=== PATIENT | female | born 1940 | race Caucasian/White ===

== ENCOUNTER 2016-08-13 08:25 | Day surgery (SDC) | payer BC ==
[2016-08-12 13:33] VITALS: BMI 39.5
[2016-08-13] MEDS ORDERED: GENTAMICIN SO4 80 MG/2 ML VIAL ONE (10:38)
[2016-08-13] MEDS ORDERED: MIDAZOLAM HCL 2 MG/2 ML SINGLE DOSE VIAL ONE (10:46)
[2016-08-13] MEDS ORDERED: ROCURONIUM BROMIDE 50 MG/5 ML VIAL ONE (10:49)
[2016-08-13] MEDS ORDERED: ceFAZolin SODIUM 1 GM VIAL IVPB ONE (10:54)
[2016-08-13] MEDS ORDERED: GENTAMICIN SO4 80 MG/2 ML VIAL IVPB ONE (11:00)
[2016-08-13] MEDS ORDERED: DEXAMETHASONE SOD PHOSPHATE 4 MG/1 ML VIAL ONE (11:19)
[2016-08-13] MEDS ORDERED: DEXTROSE 5%-0.45% SALINE 1,000 ML IV SCH (11:30)
[2016-08-13] MEDS ORDERED: oxyCODONE HCL 5 MG TABLET PO PRN (11:30)
[2016-08-13] MEDS ORDERED: ACETAMINOPHEN INJECTION 100 ML IVPB ONE (12:13)
[2016-08-13] MEDS ORDERED: ACETAMINOPHEN 1000 MG/100 ML VIAL (NON FORMULARY) IVPB ONE ×2 (12:15→13:17)
--- NOTE | 2016-08-13 12:25 | OP ---
DATE OF OPERATION: 08/13/2016 PREOPERATIVE DIAGNOSIS: Large right kidney stone. POSTOPERATIVE DIAGNOSIS: Large right kidney stone, plus right ureteral stricture. PROCEDURE PERFORMED: Cystoscopy, retrograde pyelogram, and stent placement. SURGEON: Fabi Lau MD INDICATIONS: The patient is a 76-year-old female with chronic UTIs. She was noted to have a large 1.6-cm right kidney stone. She was taken to the OR for planned ureteroscopy and laser lithotripsy. PROCEDURE IN DETAIL: The patient was taken to the OR and placed supine on the table. child monitor administered and general anesthesia was established. She was prepped and draped in the dorsal lithotomy position. She was given 2 g of Ancef and 1 g of gentamicin. The scope was inserted into the urethra and then into the bladder without difficulty. The bladder was normal. Attention was turned to the ureteral orifice and inserted the ureteral catheter and contrast was injected. There was mild fullness of the collecting system with a large stone at the UPJ. A guidewire was advanced into the ureter beyond the stone. A 2nd guidewire was advanced. Over the 2nd wire a flexible ureteroscope was attempted to be advanced but would not go through because of the tight narrowing at the UPJ. So, at this point the ureteroscope was not bothered to try to be advanced since it would not go up easily and so attention was turned to just placing a stent and then to come back later at a different date for ureteroscopy and laser lithotripsy. So, at this point the over the remaining guidewire a 7-Persian 24-cm double pigtail stent was then advanced in a monorail fashion. Fluoroscopy confirmed good position. The patient was then woken from anesthesia and transferred to the recovery in stable condition. There were no complications. ESTIMATED BLOOD LOSS: minimal. FABI LAU M.D. [id number]
[2016-08-13] MEDS ORDERED: ONDANSETRON 4 MG/2 ML VIAL IVPUSH PRN (13:16)
[2016-08-13] MEDS ORDERED: LACTATED RINGERS SOLUTION 1,000 ML IV SCH (13:30)
[2016-08-13 14:08] VITALS: BP 157/87; PULSE 52; TEMP 97.4
== END 2016-08-13 14:37 | disposition home or self-care (01) ==
LOC: JASU-SURG 08:25
PROVIDERS: ATTEND Urology
PROC: 0T768DZ Dilation of Right Ureter with Intraluminal Device, Via Natural or Artificial Opening Endoscopic (ICD-10-PCS; principal; 2016-08-13 10:00)
PROC: BT1DYZZ Fluoroscopy of Right Kidney, Ureter and Bladder using Other Contrast (ICD-10-PCS; 2016-08-13 10:00)
DX: N20.0 Calculus of kidney (principal); N13.5 Crossing vessel and stricture of ureter without hydronephrosis
CPT/HCPCS: 76000-TC; 94760

== ENCOUNTER 2016-08-28 08:50 | Inpatient (IN) | payer BC ==
[2016-08-28 08:59] VITALS: BMI 39.6
--- NOTE | 2016-08-28 10:18 | PDOC ---
History of Present Illness - General History Source: Patient Exam Limitations: No Limitations - History of Present Illness Initial Comments: 08/28/16 12:35 Patient is a 76 year old female with a significant past medical history of hypertension and recurrent UTIs who presents to the ED with fever. Patient reports a fever of 103.5 and chills. She also reports yellow vomiting. Patient reports r flank pain that radites to her R groin/vagina. Patient had hx of chronic utis and was recently placed on abx for 7 days and dx with kidney stone. Patient had a urethral stent put in as outpatient by Dr. Whitaker. Patient did not the stone removed yet and is scheduled on 09/04. Patient had a UA by Dr. Whitaker for UTI 08/26 and is still waiting on results. PMD: Hardeep <Kandi Sánchez - Last Filed: 08/28/16 13:23> <Andrea Campbell - Last Filed: 08/28/16 14:00> - General Chief Complaint: SIRS, Suspected/Possible Stated Complaint: FEVER, TREMORS (URETERIC STENT) Time Seen by Provider: 08/28/16 09:50 Past History <Kandi Sánchez - Last Filed: 08/28/16 13:23> - Past Medical History HTN: Yes Kidney Stones: Yes - Surgical History Appendectomy: Yes Orthopedic Surgery: Yes (KNEE SURGERY-ARTHROSCOPY) - Psycho/Social/Smoking Cessation Hx Anxiety: No Suicidal Ideation: No Smoking History: Never smoked Hx Alcohol Use: No Drug/Substance Use Hx: No Substance Use Type: None Hx Substance Use Treatment: No <Andrea Campbell - Last Filed: 08/28/16 14:00> - Past Medical History Allergies/Adverse Reactions: Allergies Allergy/AdvReac Type Severity Reaction Status Date / Time No Known Drug Allergies Allergy Verified 08/28/16 08:55 Home Medications: Ambulatory Orders Enalapril/Hydrochlorothiazide [Vaseretic 10-25 mg Tablet] 1 each PO DAILY Review of Systems - Review of Systems Able to Perform ROS?: Yes Comments:: 08/28/16 12:35 CONSTITUTIONAL: Reported: fever, chills No reported: Diaphoresis, Generalized Weakness, Malaise, Loss of Appetite HEENT: No reported: Rhinorrhea, Nasal Congestion, Throat Pain, Throat Swelling, Difficulty Swallowing, Mouth Swelling, Ear Pain, Eye Pain, Visual Changes CARDIOVASCULAR: No reported: Chest Pain, Syncope, Palpitations, Irregular Heart Rate, Lightheadedness, Peripheral Edema RESPIRATORY: No reported: Cough, Shortness of Breath, SOB with Exertion, Orthopnea, Wheezing , Stridor, Hemoptysis GASTROINTESTINAL: Reported: abdominal pain, nausea, vomiting No reported: Abdominal Distension, Diarrhea, Constipation, Melena, Hematochezia GENITOURINARY: Reported: genital pain, flank pain No reported: Dysuria, Frequency, Urgency, Hesitancy MUSCULOSKELETAL: No reported: Myalgia, Arthralgia, Joint Swelling, Back pain, Neck Pain SKIN: No reported: Rash, Itching, Pallor HEMEATOLOGIC/IMMUNOLOGIC: No reported: Easy Bleeding, Easy Bruising, Lymphadenopathy, Frequent infections ENDOCRINE: No reported: Unexplained Weight Gain, Unexplained Weight Loss, Heat Intolerance , Cold Intolerance NEUROLOGIC: No reported: Headache, Focal Weakness, Paresthesias, Vertigo, Lightheadedness, Unsteady Gait, Seizure, Mental Status Changes, Incontinence PSYCHIATRIC: No reported: Anxiety, Depression <Kandi Sánchez - Last Filed: 08/28/16 13:23> *Physical Exam - Vital Signs Last Vital Signs Temp Pulse Resp BP Pulse Ox 101.2 F H 88 16 132/72 98 08/28/16 10:50 08/28/16 10:02 08/28/16 10:50 08/28/16 10:02 08/28/16 10:50 - Physical Exam Comments: 08/28/16 12:36 GENERAL: The patient is awake, alert, and fully oriented, Nontoxic - in no acute distress. HEAD: Normocephalic, atraumatic. EYES: extraocular movements intact, sclera anicteric, conjunctiva clear. ENT: Normal voice, Moist mucous membranes. NECK: Normal range of motion, supple LUNGS: Breath sounds equal, clear to auscultation bilaterally. No wheezes, no rhonchi, no rales. HEART: Regular rate and rhythm, without murmur, rub or gallop. ABDOMEN: Soft, nontender, normoactive bowel sounds. No guarding, no rebound. (+) Mild R CVA tenderness EXTREMITIES: Normal range of motion, no edema. No clubbing or cyanosis. No cords , erythema, or tenderness. NEUROLOGICAL: No facial asymmetry, Normal speech, PSYCH: Normal mood, normal affect. SKIN: hot to touch, Dry, normal turgor, <PrincessKandi - Last Filed: 08/28/16 13:23> - Vital Signs Last Vital Signs Temp Pulse Resp BP Pulse Ox 100.1 F H 91 H 18 131/69 95 08/28/16 08:56 08/28/16 08:56 08/28/16 08:56 08/28/16 08:56 08/28/16 08:56 <Andrea Campbell - Last Filed: 08/28/16 14:00> Heart Score/ECG Review - ECG Impressions Comment:: 08/28/16 11:52 Twelve-lead EKG was performed and reviewed by me. There is normal sinus rhythm with a rate of 55 The axis is normal. The intervals are normal. Nonspecific ST wave changes <Andrea Campbell - Last Filed: 08/28/16 14:00> ED Treatment Course - LABORATORY CBC & Chemistry Diagram: 08/28/16 10:20 08/28/16 10:20 - ADDITIONAL ORDERS Additional order review: Laboratory Results 08/28/16 08/28/16 08/28/16 10:25 10:20 10:20 INR 1.28 H PTT (Actin FS) 27.6 VBG pH 7.45 H POC VBG pCO2 34.9 L POC VBG pO2 38.9 Mixed VBG HCO3 23.8 Sodium 136 Potassium 3.4 L Chloride 102 Carbon Dioxide 24 Anion Gap 10 BUN 18 Creatinine 0.9 Creat Clearance w eGFR > 60 Random Glucose 142 H Lactic Acid Calcium 8.2 L Total Bilirubin 0.9 AST 16 ALT 15 Alkaline Phosphatase 54 Creatine Kinase 68 Troponin I < 0.02 Total Protein 6.7 Albumin 3.4 Urine Color Urine Appearance Urine pH Urine Protein Urine Glucose (UA) Urine Ketones Urine Blood Urine Nitrite Urine Bilirubin Urine Urobilinogen Ur Leukocyte Esterase Urine RBC Urine WBC Ur Epithelial Cells Urine Bacteria Urine Mucus Blood Type Antibody Screen 08/28/16 08/28/16 08/28/16 10:02 10:02 10:02 INR PTT (Actin FS) VBG pH POC VBG pCO2 POC VBG pO2 Mixed VBG HCO3 Sodium Potassium Chloride Carbon Dioxide Anion Gap BUN Creatinine Creat Clearance w eGFR Random Glucose Lactic Acid 1.1 Calcium Total Bilirubin AST ALT Alkaline Phosphatase Creatine Kinase Troponin I Total Protein Albumin Urine Color Yellow Urine Appearance Slcloudy Urine pH 5.0 Urine Protein 1+ H Urine Glucose (UA) Negative Urine Ketones Trace H Urine Blood 3+ H Urine Nitrite Positive Urine Bilirubin Negative Urine Urobilinogen Negative Ur Leukocyte Esterase 3+ H Urine RBC 90 Urine WBC 441 Ur Epithelial Cells Rare Urine Bacteria Few Urine Mucus Rare Blood Type A POSITIVE Antibody Screen Negative 08/28/16 10:20 RBC 4.31 MCV 93.8 MCHC 34.3 RDW 12.8 MPV 8.9 Neutrophils % 81.4 Lymphocytes % 7.7 L Monocytes % 10.3 H Eosinophils % 0.1 Basophils % 0.5 - Medications Given in the ED: ED Medications Discontinued Medications Generic Name Dose Route Start Last Admin Trade Name Donovan PRN Reason Stop Dose Admin Acetaminophen 650 mg 08/28/16 11:35 08/28/16 11:36 Tylenol - PO 08/28/16 11:36 650 mg ONCE ONE Administration Ceftriaxone Sodium 1 gm/ 50 mls @ 100 mls/hr 08/28/16 11:27 08/28/16 11:34 Dextrose IVPB 08/28/16 11:56 100 mls/hr ONCE ONE Administration <Kandi Sánchez - Last Filed: 08/28/16 13:23> - LABORATORY CBC & Chemistry Diagram: 08/28/16 10:20 08/28/16 10:20 - RADIOLOGY Radiology Studies Ordered: Category Date Time Status CHEST X-RAY PORTABLE* [RAD] Stat Radiology 08/28/16 10:02 Ordered <Andrea Campbell - Last Filed: 08/28/16 14:00> Medical Decision Making - Medical Decision Making 08/28/16 13:23 A call was placed to Dr. Abdi at his service. Awaiting a call back. <Kandi Sánchez - Last Filed: 08/28/16 13:23> - Medical Decision Making 08/28/16 10:14 76y F hx of htn, kidney stones recent ureteral stent presents with compalint of fever since her stent and chills since wednesday, pt saw dr. ragsdale on wednesday and had a UA and per family, they were waiting for culture results. pt endorses intermittent R flank pain radiating down to her vagina. 08/28/16 11:33 pts labs reviewed noted for mild leukocytosis ua +uti case dw. dr. ragsdale, agree with management will give ctx and would recommend CT with IV contrast to r/o renal abscess pt will lkely need admission for management of complicated UTI & w kidney stone 08/28/16 13:19 ct notable for cystitsi, no signs of renal abscess will admit for further management will call dr. Meier 08/28/16 13:58 case dw jose carlson will admit to med surg under dr. hutchison service as pt has already failed outpatient abx therepy Case discussed in detail with admitting physician including history, physical exam and ancillary studies. Admitting physician has assumed care for the patient, will follow all pending diagnostics and will complete the evaluation and treatment. <Andrea Campbell - Last Filed: 08/28/16 14:00> *DC/Admit/Observation/Transfer - Attestations Scribe Attestion: 08/28/16 12:36 Documentation prepared by SHARON Muniz, acting as medical surgical tech for Andrea Campbell MD. <Kandi Sánchez - Last Filed: 08/28/16 13:23> - Discharge Dispostion Admit: Yes <Andrea Campbell - Last Filed: 08/28/16 14:00> Diagnosis at time of Disposition: Kidney stone on right side, Systemic inflammatory response syndrome (SIRS) Urinary tract infection Qualifiers: Urinary tract infection type: acute cystitis Hematuria presence: with hematuria Qualified Code(s): N30.01 - Acute cystitis with hematuria - Discharge Dispostion Condition at time of disposition: Guarded - Referrals Referrals: Seth Mullen [Primary Care Provider] -
[2016-08-28 10:36] LABS: BASOPHIL 0.5 % (0-2.0); EOSINOPHIL 0.1 % (0-4.5); MCH 32.2 pg (25.7-33.7); MCHC 34.3 g/dl (32.0-36.0); MEAN CELL VOLUME 93.8 fl (80-96); MEAN PLT VOLUME 8.9 fl (7.5-11.1); NEUTROPHILS 81.4 % (42.8-82.8); PLATELET COUNT 144 K/MM3 (134-434); RDW 12.8 % (11.6-15.6); WHITE BLOOD COUNT 10.4 K/mm3 (4.0-10.0)
[2016-08-28 10:40] LABS: VENOUS BLOOD GAS HCO3 23.8 meq/L (19-25); VENOUS PH 7.45 (7.32-7.42)
[2016-08-28 10:52] LABS: INR 1.28 (0.82-1.09); PROTHROMBIN TIME (PATIENT) 14.2 SEC (9.98-11.88)
[2016-08-28 10:55] LABS: ACTIVATED PTT 27.6 SECONDS (26.9-34.4)
[2016-08-28 11:02] LABS: ALBUMIN 3.4 g/dl (3.4-5.0); ANION GAP 10 (8-16); BILIRUBIN,TOTAL 0.9 mg/dL (0.2-1.0); CALCIUM 8.2 mg/dL (8.5-10.1); CO2 24 mmol/L (21-32); CREATININE 0.9 mg/dL (0.55-1.02); GLUCOSE,RANDOM 142 mg/dL (74-106); SGOT/AST 16 U/L (15-37); SGPT/ALT 15 U/L (12-78); TOT PROT 6.7 g/dl (6.4-8.2)
[2016-08-28 11:04] LABS: ALK PHOS 54 U/L (45-117); TROPONIN I < 0.02 ng/ml (0.00-0.05)
[2016-08-28 11:07] LABS: URINE APPEARANCE SLCLOUDY; URINE BILIRUBIN NEGATIVE (NEGATIVE); URINE COLOR YELLOW; URINE GLUCOSE (UA) NEGATIVE (NEGATIVE); URINE KETONE TRACE (NEGATIVE); URINE NITRITE POSITIVE (NEGATIVE); URINE UROBILINOGEN NEGATIVE mg/dL (0.2-1.0)
[2016-08-28 11:21] LABS: URINE BLOOD 3+ (NEGATIVE); URINE LEUK ESTERASE 3+ (NEGATIVE); URINE PROTEIN 1+ (NEGATIVE)
[2016-08-28 11:23] LABS: URINE BACTERIA FEW /hpf (NONE SEEN); URINE MUCUS RARE; URINE RBC 90 /hpf (0-3); URINE WBC 441 /hpf (3-5)
[2016-08-28] MEDS ORDERED: CEFTRIAXONE 1 GM in DEXTROSE 5%-WATER - 50 ML IVPB ONE (11:27)
[2016-08-28] MEDS ORDERED: CEFTRIAXONE 50 ML ONE (11:35)
[2016-08-28] MEDS ORDERED: ACETAMINOPHEN 325 MG TABLET (FP) PO ONE (11:35)
[2016-08-28] MEDS ORDERED: ACETAMINOPHEN 325 MG TABLET (FP) ONE (11:40)
[2016-08-28] MEDS ORDERED: POTASSIUM CHLORIDE TABS 20 MEQ TABLET.ER (FP) PO ONE (19:41)
[2016-08-28] MEDS ORDERED: ACETAMINOPHEN 325 MG TABLET (FP) PO PRN (21:01)
[2016-08-28] MEDS ORDERED: LEVOFLOXACIN 500 MG IVPB 100 ML IVPB ONE (21:02)
[2016-08-29 07:31] LABS: MCH 32.9 pg (25.7-33.7); MCHC 35.3 g/dl (32.0-36.0); MEAN CELL VOLUME 93.3 fl (80-96); MEAN PLT VOLUME 9.6 fl (7.5-11.1); PLATELET COUNT 143 K/MM3 (134-434); RDW 12.9 % (11.6-15.6); WHITE BLOOD COUNT 7.6 K/mm3 (4.0-10.0)
[2016-08-29 07:51] LABS: ANION GAP 8 (8-16); CALCIUM 8.3 mg/dL (8.5-10.1); CO2 27 mmol/L (21-32); CREATININE 0.8 mg/dL (0.55-1.02); GLUCOSE,RANDOM 106 mg/dL (74-106)
--- NOTE | 2016-08-29 08:33 | EKG ---
Test Reason : Blood Pressure : / mmHG Vent. Rate : 081 BPM Atrial Rate : 081 BPM P-R Int : 124 ms QRS Dur : 102 ms QT Int : 376 ms P-R-T Axes : 057 079 053 degrees QTc Int : 436 ms NORMAL SINUS RHYTHM NONSPECIFIC ST ABNORMALITY ABNORMAL ECG NO PREVIOUS ECGS AVAILABLE Confirmed by TEOFILO DUDLEY, MARVIN ([id number]) on 08/29/2016 8:32:52 AM Referred By: Confirmed By:MARVIN RED MD
[2016-08-29 09:32] LABS: PLATELET ESTIMATE ADEQUATE (NORMAL)
--- NOTE | 2016-08-29 09:37 | PN ---
Progress Note (short form) - Note Progress Note: ID consult dictated imp/reccd fevers/chill secondary to UTI nephrolithiasis with stent- stone has not been removed yet no obstruction on CT scan urology evaluation continue ceftriaxone-afebrile this am f/u cultures
[2016-08-29] MEDS ORDERED: cefTRIAXone 1 GM/50 ML BAG (PRE-DOCKED) IVPB SCH (10:00)
[2016-08-29] MEDS ORDERED: CEFTRIAXONE 1 GM in DEXTROSE 5%-WATER - 50 ML IVPB SCH (10:00)
[2016-08-29] MEDS ORDERED: cefTRIAXone 2 GM/100 ML BAG (PRE-DOCKED) IVPB SCH (10:00)
[2016-08-29] MEDS ORDERED: DEXTROSE 5%-WATER 100 ML IVPB ONE (10:06)
[2016-08-29] MEDS: CEFTRIAXONE 2 GM in DEXTROSE 5%-WATER 100 ML IVPB SCH (10:07)
--- NOTE | 2016-08-29 15:39 | HP ---
Admitting History and Physical - Primary Care Physician PCP: Arturo Buckley - Admission Chief Complaint: Fever and dysuria History of Present Illness: 76 y/o white female who underwent placement of a stent in the ureter around a a stone at the UP junction a couple of days BALLET SOLOIST by and had been taking Cefuroxime PO.On the day admission developed shaking chills and diaphoresis and came to ED and [place] a [place] 103 [place] [address] and was started on Rocephin and Levaquin IV and became afebrile. This AM urine shows Gram neg bacteria most likely ECOLI. History Source: Patient Limitations to Obtaining History: No Limitations - Past Medical History Cardiovascular: Yes: HTN Gastrointestinal: Yes: Diverticulosis, Hiatal Hernia ...: No Musculoskeletal: Yes: Osteoarthritis - Past Surgical History Past Surgical History: Yes: Appendectomy, Colonoscopy - Smoking History Smoking history: Never smoked Have you smoked in the past 12 months: No Aproximately how many cigarettes per day: 0 - Alcohol/Substance Use Hx Alcohol Use: No - Social History Usual Living Arrangement: Yes: Alone ADL: Independent Home Medications - Allergies Allergies/Adverse Reactions: Allergies Allergy/AdvReac Type Severity Reaction Status Date / Time No Known Drug Allergies Allergy Verified 08/28/16 08:55 - Home Medications Home Medications: Ambulatory Orders Enalapril/Hydrochlorothiazide [Vaseretic 10-25 mg Tablet] 1 each PO DAILY Home Medications (free text): Cefuroxime 500mg BID Review of Systems - Review of Systems Constitutional: reports: Chills, Diaphoresis Eyes: reports: No Symptoms HENT: reports: No Symptoms Neck: reports: No Symptoms Cardiovascular: reports: No Symptoms Respiratory: reports: No Symptoms Gastrointestinal: reports: Abdominal Pain Genitourinary: reports: Burning, Dysuria Breasts: reports: No Symptoms Reported Musculoskeletal: reports: Back Pain Integumentary: reports: No Symptoms Neurological: reports: No Symptoms Hematology/Lymphatic: reports: No Symptoms Physical Examination Vital Signs: Vital Signs Temperature 98.8 F 08/29/16 06:08 Pulse Rate 69 08/29/16 06:08 Respiratory Rate 20 08/29/16 09:00 Blood Pressure 122/72 08/29/16 06:08 O2 Sat by Pulse Oximetry (%) 95 08/29/16 09:00 Constitutional: Yes: Obese Eyes: Yes: Conjunctiva Clear, EOM Intact HENT: Yes: WNL Neck: Yes: Supple Cardiovascular: Yes: Regular Rate and Rhythm, S1, S2 Respiratory: Yes: Regular, CTA Bilaterally Gastrointestinal: Yes: Normal Bowel Sounds, Soft, Other (suprapubic tenderness) Renal/: Yes: WNL Musculoskeletal: Yes: Back Pain Extremities: Yes: WNL Edema: No Peripheral Pulses WNL: Yes Integumentary: Yes: WNL Neurological: Yes: Alert, Oriented ...Motor Strength: WNL Psychiatric: Yes: WNL, Alert, Oriented Labs: CBC, BMP 08/29/16 06:00 08/29/16 06:00 Imaging - Results Chest X-ray: Image Reviewed X-ray: Image Reviewed Cat Scan: Report Reviewed EKG: Image Reviewed Problem List - Problems (1) Kidney stone on right side Assessment/Plan: Stone at UP junction Code(s): N20.0 - CALCULUS OF KIDNEY (2) Urinary tract infection Assessment/Plan: Gram negative cystitis Code(s): N39.0 - URINARY TRACT INFECTION, SITE NOT SPECIFIED Qualifiers: Urinary tract infection type: acute cystitis Hematuria presence: with hematuria Qualified Code(s): N30.01 - Acute cystitis with hematuria (3) Ureteral stent retained Assessment/Plan: A stent is in place Code(s): Z96.0 - PRESENCE OF UROGENITAL IMPLANTS (4) Hypertension Code(s): I10 - ESSENTIAL (PRIMARY) HYPERTENSION Assessment/Plan As patient had been taking Cefuroxime BALLET SOLOIST will continue IV Levaquin besides Rocephin pending cultures
[2016-08-29] MEDS: LEVOFLOXACIN 500 MG IVPB 100 ML IVPB SCH (15:56)
[2016-08-30] MEDS ORDERED: DEXTROSE 5%-WATER 100 ML IVPB ONE (08:58)
[2016-08-30] MEDS: CEFTRIAXONE 2 GM in DEXTROSE 5%-WATER 100 ML IVPB SCH (09:08)
[2016-08-30] MEDS: LEVOFLOXACIN 500 MG IVPB 100 ML IVPB SCH (09:44)
--- NOTE | 2016-08-30 11:26 | PN ---
Progress Note (short form) - Note Progress Note: no complaints fever resolved Vital Signs Period Temp Pulse Resp BP Sys/Zelaya Pulse Ox Last 24 Hr 98.3 F-98.8 F 81-84 20-20 121-133/72-75 95 cor-rrr lungs clear abd soft,nt, no cvat ext no edema CBC, BMP 08/29/16 06:00 08/29/16 06:00 Microbiology 08/28/16 10:02 Blood - Peripheral Venous Blood Culture - Preliminary NO GROWTH OBTAINED AFTER 48 HOURS, INCUBATION TO CONTINUE FOR 3 DAYS. 08/28/16 10:20 Blood - Peripheral Venous Blood Culture - Preliminary NO GROWTH OBTAINED AFTER 48 HOURS, INCUBATION TO CONTINUE FOR 3 DAYS. 08/28/16 10:02 Urine - Urine Clean Catch Urine Culture - Final Klebsiella Pneumoniae - Esbl a/p fevers/chill secondary to UTI nephrolithiasis with stent- stone has not been removed yet no obstruction on CT scan urology evaluation d/c rocephin continue levaqqin contact isolation for esbl kleb urology followup
[2016-08-30] MEDS: POLYETHYLENE GLYCOL 3350 119 GM BTL PO SCH ×2 (11:28→21:24)
--- NOTE | 2016-08-30 21:12 | PN ---
Progress Note, Physician History of Present Illness: Known case of a ureteral stone with a stent who presented with fever and shaking chills and found to have UTI with Klebsiella ESBL and has been transferred to contact isolation. She has been treated with IV Rocephin and IV Levaquin and the former was D/C today after urine culture report. She continues to have dysuria - Current Medication List Current Medications: Active Medications Acetaminophen (Tylenol -) 650 mg PO Q6H PRN PRN Reason: FEVER OR PAIN Last Admin: 08/28/16 21:29 Dose: 650 mg Levofloxacin (Levaquin 500 Mg Premixed Ivpb -) 100 mls @ 100 mls/hr IVPB DAILY [facility] Last Admin: 08/30/16 09:44 Dose: 100 mls/hr Polyethylene Glycol (Miralax (For Daily Use) -) 17 gm PO BID [facility] Last Admin: 08/30/16 11:28 Dose: Not Given - Objective Vital Signs: Vital Signs Temperature 98.6 F 08/30/16 20:31 Pulse Rate 78 08/30/16 20:31 Respiratory Rate 20 08/30/16 20:31 Blood Pressure 108/66 08/30/16 20:31 O2 Sat by Pulse Oximetry (%) 96 08/30/16 20:32 Constitutional: Yes: Well Nourished, No Distress, Calm Eyes: Yes: Conjunctiva Clear, EOM Intact HENT: Yes: WNL Neck: Yes: Supple Cardiovascular: Yes: Regular Rate and Rhythm, S1, S2 Respiratory: Yes: CTA Bilaterally Gastrointestinal: Yes: Normal Bowel Sounds, Soft Genitourinary: Yes: WNL Musculoskeletal: Yes: Back Pain Extremities: Yes: WNL Edema: No Peripheral Pulses WNL: Yes Integumentary: Yes: WNL Neurological: Yes: Alert, Oriented ...Motor Strength: WNL Psychiatric: Yes: Alert, Oriented Labs: CBC, BMP 08/29/16 06:00 08/29/16 06:00 INR, PTT INR 1.28 (0.82-1.09) H 08/28/16 10:20 Problem List - Problems (1) Kidney stone on right side Code(s): N20.0 - CALCULUS OF KIDNEY (2) Urinary tract infection Assessment/Plan: Blood cultures remain negative, urine culture shows Klebsiella ESBL Code(s): N39.0 - URINARY TRACT INFECTION, SITE NOT SPECIFIED Qualifiers: Urinary tract infection type: acute cystitis Hematuria presence: with hematuria Qualified Code(s): N30.01 - Acute cystitis with hematuria (3) Ureteral stent retained Assessment/Plan: Ureteral stent in place. to decide about removal of stone Code(s): Z96.0 - PRESENCE OF UROGENITAL IMPLANTS (4) Hypertension Assessment/Plan: BP has been well controlled Code(s): I10 - ESSENTIAL (PRIMARY) HYPERTENSION Assessment/Plan Rocephin was d/c due to Klebsiella ESBL and IV Levaquin has been continued
[2016-08-31 08:06] LABS: BASOPHIL 0.9 % (0-2.0); MCH 32.3 pg (25.7-33.7); MCHC 34.3 g/dl (32.0-36.0); MEAN CELL VOLUME 94.2 fl (80-96); MEAN PLT VOLUME 9.8 fl (7.5-11.1); NEUTROPHILS 47.6 % (42.8-82.8); PLATELET COUNT 202 K/MM3 (134-434); RDW 12.9 % (11.6-15.6); WHITE BLOOD COUNT 4.5 K/mm3 (4.0-10.0)
[2016-08-31 08:30] LABS: ALBUMIN 3.3 g/dl (3.4-5.0); ANION GAP 10 (8-16); CALCIUM 8.7 mg/dL (8.5-10.1); CO2 26 mmol/L (21-32); CREATININE 0.7 mg/dL (0.55-1.02); GLUCOSE,RANDOM 136 mg/dL (74-106); SGOT/AST 19 U/L (15-37); SGPT/ALT 20 U/L (12-78)
[2016-08-31 08:32] LABS: ALK PHOS 57 U/L (45-117); BILIRUBIN,TOTAL 0.6 mg/dL (0.2-1.0); TOT PROT 6.7 g/dl (6.4-8.2)
[2016-08-31] MEDS: LEVOFLOXACIN 500 MG IVPB 100 ML IVPB SCH (10:30)
[2016-08-31] MEDS: POLYETHYLENE GLYCOL 3350 119 GM BTL PO SCH (10:31)
--- NOTE | 2016-08-31 11:43 | CONS ---
INFECTIOUS DISEASE CONSULTATION DATE OF CONSULTATION: DATE OF DICTATION: 08/29/2016 REQUESTING PHYSICIAN: Arturo Buckley MD HISTORY OF PRESENT ILLNESS: This is a 76-year-old woman with a history of nephrolithiasis. She had a stent placed on August 13 for a large right-sided stone. She did not have laser lithotripsy at that time. About a week ago, she was seen by Dr. Whitaker, and she was placed on antibiotics. She does not know what she was given. She started having fevers. Yesterday, she started having chills, and she presented to the emergency room. She also had some vomiting that resolved. She notes flank pain since she has had the stent in place. She otherwise feels well. She denies headache. She denies chest pain. PAST MEDICAL HISTORY: Notable for hypertension and nephrolithiasis. She has had an appendectomy and arthroscopy of her knee. ALLERGIES: She has no known drug allergies. MEDICATIONS: She takes Vaseretic at home. She was on an antibiotic. She does not know what she was taking. SOCIAL HISTORY: She lives at home with her family. REVIEW OF SYSTEMS: There has been no diarrhea. She has had fevers, and most markedly, she has noted chills. She denies cough. She denies chest pain. She denies shortness of breath. PHYSICAL EXAMINATION: Vital Signs: Her T-max is 103.1. Current temperature is 98.8. Pulse is 69, blood pressure is 122/72, respiratory rate is 20. HEENT: She is normocephalic. Her eyes are anicteric. Neck: Supple. Lungs: Clear to auscultation. Heart: Regular rate and rhythm. Abdomen: Soft. She has right CVA tenderness and suprapubic discomfort on exam. She has good bowel sounds. She has no abdominal distention. Extremities: Without edema. Skin: She has no rash. LABORATORY DATA: Her labs are notable for an admission white count of 10.4; this morning, 7.6. Hemoglobin 12.5. Platelets are 143. BUN is 12 and creatinine 0.8. Liver function tests are normal. She had 441 white cells and 90 red cells in her urinalysis, and blood and urine cultures are pending. CAT scan was done of the abdomen and pelvis, shows a stone at the right ureteropelvic junction and no evidence of hydronephrosis. There is also a right-sided stent in place. In summary, this is a 76-year-old woman with nephrolithiasis and hypertension, admitted with fevers and chills secondary to urinary tract infection. She has nephrolithiasis with stent in place. No obstruction on CAT scan. Would continue ceftriaxone and fluids as her fever curve has improved as well as her white count. She needs a urology evaluation as well as followup of her cultures. Further recommendations to follow. Mitzi [id number]
--- NOTE | 2016-08-31 13:31 | PN ---
Progress Note (short form) - Note Progress Note: no complaints fever resolved still some dysuria Vital Signs Period Temp Pulse Resp BP Sys/Zelaya Pulse Ox Last 24 Hr 98.1 F-98.7 F 77-80 20-20 108-124/59-71 96 cor-rrr lungs clear abd soft, nt no cvat ext no edema CBC, BMP 08/31/16 06:40 08/31/16 06:40 Microbiology 08/28/16 10:02 Blood - Peripheral Venous Blood Culture - Preliminary NO GROWTH OBTAINED AFTER 72 HOURS, INCUBATION TO CONTINUE FOR 2 DAYS. 08/28/16 10:20 Blood - Peripheral Venous Blood Culture - Preliminary NO GROWTH OBTAINED AFTER 72 HOURS, INCUBATION TO CONTINUE FOR 2 DAYS. 08/28/16 10:02 Urine - Urine Clean Catch Urine Culture - Final Klebsiella Pneumoniae - Esbl a/p fevers/chill secondary to UTI-resolved nephrolithiasis with stent- stone has not been removed yet no obstruction on CT scan urology evaluation pending continue levaquin- can change to po if no urologic intervention is planned
--- NOTE | 2016-08-31 16:49 | CON.GU ---
Consult - History of Present Illness History of Present Illness: 76 yo female with recurrent uti and large rt kidney stone s/p stent placement 2 wks ago. Now admitted with fever and uti-responding to Levaquin. CT shows no obstruction or abscess - Past Medical History Cardio/Vascular: Yes: HTN Gastrointestinal: Yes: Diverticulosis, Hiatal Hernia ...: No Musculoskeletal: Yes: Osteoarthritis - Past Surgical History Past Surgical History: Yes: Appendectomy, Colonoscopy - Alcohol/Substance Use Hx Alcohol Use: No - Smoking History Smoking history: Never smoked Have you smoked in the past 12 months: No Aproximately how many cigarettes per day: 0 - Social History ADL: Independent Home Medications - Allergies Allergies/Adverse Reactions: Allergies Allergy/AdvReac Type Severity Reaction Status Date / Time No Known Drug Allergies Allergy Verified 08/28/16 08:55 - Home Medications Home Medications: Ambulatory Orders Enalapril/Hydrochlorothiazide [Vaseretic 10-25 mg Tablet] 1 each PO DAILY Physical Exam- Vital Signs: Vital Signs Temperature 98.7 F 08/31/16 15:13 Pulse Rate 74 08/31/16 15:13 Respiratory Rate 18 08/31/16 15:13 Blood Pressure 118/69 08/31/16 15:13 O2 Sat by Pulse Oximetry (%) 96 08/30/16 20:32 Labs: CBC, BMP 08/31/16 06:40 08/31/16 06:40 Problem List - Problems (1) Kidney stone on right side Assessment/Plan: will cont on Levaquin also as outpatient. Scheduled for laser lithotripsy electively next wednesday. Will be on Levaquin until then and will get a dose of Ertapenem 1gm IV preop Code(s): N20.0 - CALCULUS OF KIDNEY
[2016-08-31 20:43] VITALS: BP 139/72; PULSE 76; TEMP 98.6
--- NOTE | 2016-09-01 16:06 | DS ---
Physical Examination Vital Signs: Vital Signs Temperature 98.6 F 08/31/16 20:42 Pulse Rate 76 08/31/16 20:42 Respiratory Rate 20 08/31/16 20:42 Blood Pressure 139/72 08/31/16 20:42 O2 Sat by Pulse Oximetry (%) 96 08/30/16 20:32 Findings/Remarks: She was admitted shaking chills and temp of 103 and had a right ureteral stone with a stent placed by Julianne Eagle.Urine culture showed Klebsiell-ESBL. She had dilan on Rocephin and Levaquin IV and the former was d/c after culture was known.She has been afebrile. Constitutional: Yes: Well Nourished, No Distress, Calm Eyes: Yes: Conjunctiva Clear, EOM Intact HENT: Yes: WNL Neck: Yes: Supple Cardiovascular: Yes: Regular Rate and Rhythm, S1, S2 Respiratory: Yes: Regular, CTA Bilaterally Gastrointestinal: Yes: Normal Bowel Sounds, Soft Renal/: Yes: WNL Extremities: Yes: WNL Edema: No Peripheral Pulses WNL: Yes Integumentary: Yes: WNL Neurological: Yes: Alert, Oriented ...Motor Strength: WNL Psychiatric: Yes: Alert, Oriented Labs: CBC, BMP 08/31/16 06:40 08/31/16 06:40 Discharge Summary Reason For Visit: UTI; RIGHT RENAL CALCULUS; SYTEMIC INFLAMMATORY Klebsiella ESBL in urine Procedures: Principal: CT scan of abdomen Hospital Course: She presented to ED with shaking chills and temp of 103.Had a stent placed in right to bypass a right UP junction stone. Her exam was essentially negative except for suprapubic tenderness.She was treated with Rocephin and Levaquin IV. She became afebrile . Urine culture showed klebsiella-ESBL and Rocephin was d/c. saw the patient and scheduled pt. for laser removal of the stone on 09/03. She was switched to PO Levaquin and discharged and will be followed as outpatient. She is also hypertensive but did not require any anti hypertensive meds. Condition: Improved - Instructions Referrals: Seth Mullen [Primary Care Provider] - Disposition: HOME - Home Medications Comprehensive Discharge Medication List: Ambulatory Orders Levofloxacin [Levaquin -] 500 mg PO DAILY #14 tablet 08/31/16
== END 2016-08-31 20:56 | disposition home or self-care (01) | DRG 690 ==
LOC: JER 08:50 → JERBED 14:00 → J7W 16:50
PROVIDERS: ADMIT Internal Medicine Hematology & Oncology; ATTEND Internal Medicine Hematology & Oncology
DX: N39.0 Urinary tract infection, site not specified (principal); N20.0 Calculus of kidney; I10 Essential (primary) hypertension; M19.90 Unspecified osteoarthritis, unspecified site; K57.90 Diverticulosis of intestine, part unspecified, without perforation or abscess without bleeding; B96.1 Klebsiella pneumoniae [K. pneumoniae] as the cause of diseases classified elsewhere; Z87.442 Personal history of urinary calculi; Z96.0 Presence of urogenital implants
CPT/HCPCS: 36415; 71010-TC; 74177-TC; 80048; 80053; 81003; 81015; 82550; 82803; 83605; 84484; 85025; 85610; 85730; 86850; 86900; 86901; 87040; 87086; 87186; 93005; 93010; 99285-25; Q9967

== ENCOUNTER 2016-09-07 09:10 | Day surgery (SDC) | payer BC ==
[2016-09-03 12:13] VITALS: BMI 39.6
[2016-09-07] MEDS ORDERED: ERTAPENEM SODIUM 1 GM VIAL ONE (11:07)
[2016-09-07] MEDS ORDERED: ROCURONIUM BROMIDE 50 MG/5 ML VIAL ONE (11:28)
[2016-09-07] MEDS ORDERED: SUCCINYLCHOLINE CHLORIDE 200 MG/10 ML VIAL ONE (11:28)
[2016-09-07] MEDS ORDERED: PROPOFOL 20 ML ONE (11:28)
[2016-09-07] MEDS ORDERED: ERTAPENEM SODIUM 1 GM VIAL IVPB ONE (11:33)
[2016-09-07] MEDS ORDERED: DEXAMETHASONE SOD PHOSPHATE 4 MG/1 ML VIAL ONE (12:07)
[2016-09-07] MEDS ORDERED: LIDOCAINE HCL/PF 2% SDV 5ML VIAL ONE (12:07)
[2016-09-07] MEDS ORDERED: oxyCODONE HCL 5 MG TABLET PO PRN (12:20)
--- NOTE | 2016-09-07 12:22 | OP ---
Operative Note - Note: Operative Date: 09/07/16 Pre-Operative Diagnosis: large rt kidney stone Operation: cysto/stent removal, rt ureteroscopy/laser lithotripsy/stone basketing/stent replacement Findings: large rt kidney stone Post-Operative Diagnosis: Same as Pre-op Surgeon: Jamshid Whitaker Anesthesiologist/[employer] OPERATOR: Ketty Peterson MD Anesthesia: General Specimens Removed: stone frags Operative Report Dictated: Yes
[2016-09-07] MEDS ORDERED: ELECTROLYTE-148 SOLN 1,000 ML IV SCH (12:30)
[2016-09-07] MEDS ORDERED: PROMETHAZINE HCL 25 MG/1 ML VIAL IVPUSH PRN (12:31)
[2016-09-07] MEDS ORDERED: ONDANSETRON 4 MG/2 ML VIAL IVPUSH PRN (12:31)
[2016-09-07] MEDS ORDERED: LACTATED RINGERS SOLUTION 1,000 ML IV SCH (12:45)
[2016-09-07 14:22] VITALS: PULSE 66
[2016-09-07 15:14] VITALS: BP 135/75; TEMP 97.7
--- NOTE | 2016-09-08 12:07 | OP ---
DATE OF OPERATION: 09/07/2016 PREOPERATIVE DIAGNOSIS: Large right kidney stone. POSTOPERATIVE DIAGNOSIS: Large right kidney stone. PROCEDURE: Cystoscopy, stent removal, ureteroscopy, laser lithotripsy, stone basketing, and stent placement. SURGEON: Fabi Lau MD INDICATION: Patient is a 76-year-old female with recurrent UTI and a large kidney stone, status post stent placement several weeks ago, now taken to the OR for lithotripsy of stone. Risks, benefits, and alternatives discussed including potential need for additional procedures due to large stone burden and potential for inadequate fragmentation. DESCRIPTION OF PROCEDURE: After informed consent was obtained, patient taken to the OR, placed supine on the table. Cardiac monitoring and general anesthesia were established. She was prepped and draped in dorsal lithotomy position. She was given 1 g IV of Invanz preoperatively. At this point, cystoscope was inserted into the urethra without difficulty and into the bladder. The stent was seen emanating from the right ureteral orifice. A guidewire was advanced alongside the stent into the right renal pelvis, and then, a grasper was used to remove the stent, and through the stent, a second guidewire was advanced into the renal pelvis. Over the second wire, a 12/14-Faroese access sheath was easily advanced into the ureter, and through the access sheath, a flexible ureteroscope was advanced into the kidney, where a large stone was seen. Using the 365-micron fiber, the stone was pulverized to fine dust in 1-2 mm fragments these fragments removed with the grasper forceps and sent to Pathology for analysis. No other large stones were noted. Ureteroscope was then removed, and an 8-Faroese, 24-cm pigtail stent was then advanced in a monorail fashion. Fluoroscopy confirmed the stent to be in good position. Patient was awoken from anesthesia and transferred to recovery room in stable condition. There were no complications. Estimated blood loss was minimal. FABI LAU M.D. [id number]
--- NOTE | 2016-09-08 13:56 | PATH ---
Surgical Pathology Report Patient Name: AMBER VICK Med. Rec. #: [id number] /Age/Gender: 1940 (Age: 76) / F Account: [id number] Location: [facility] Taken: 09/07/2016 Received: 09/07/2016 Reported: 09/08/2016 Physicians: Jamshid Whitaker M.D. Specimen(s) Received A: OLD URETERAL STENT B: RIGHT KINEY STONES Clinical History Right renal calculi Final Diagnosis A. OLD URETERAL STENT, REMOVAL: STENT (GROSS EXAM). B. KIDNEY STONE, RIGHT: CALCULUS (GROSS EXAM). SPECIMEN SENT FOR CHEMICAL ANALYSIS. Electronically Signed Vitaly Azar M.D. Gross Description A. Received without fixative, labeled "old ureteral stent" is a 37 cm in length blue tube, consistent with a stent. No soft tissue is attached. The specimen is gross examination only. B. Received without fixative, labeled "right kidney stone" are 5 fischer fragments of calculus, 0.2 cm in greatest dimension each. Specimen sent for chemical analysis. AF/09/07/2016 final/09/07/2016
== END 2016-09-07 15:20 | disposition home or self-care (01) ==
LOC: JOR 09:10 → JASU-SURG 09:10
PROVIDERS: ATTEND Urology
PROC: 0TF38ZZ Fragmentation in Right Kidney Pelvis, Via Natural or Artificial Opening Endoscopic (ICD-10-PCS; principal; 2016-09-07 11:00)
PROC: 0T788DZ Dilation of Bilateral Ureters with Intraluminal Device, Via Natural or Artificial Opening Endoscopic (ICD-10-PCS; 2016-09-07 11:00)
DX: N20.0 Calculus of kidney (principal)
CPT/HCPCS: 76000-TC; 88300-TC; 94760

== ENCOUNTER 2024-02-10 11:37 | Emergency (ER) | payer BC, OTHER ==
[2024-02-10 13:21] VITALS: BP 120/79; PULSE 78; RESP 18; TEMP 98.4; BMI 28.2
[2024-02-10] MEDS ORDERED: ACETAMINOPHEN 500 MG TABLET (FP) ONE (14:10)
[2024-02-10] MEDS: ACETAMINOPHEN 500 MG TABLET (FP) PO ONE (14:15)
[2024-02-10] MEDS: DEXAMETHASONE 4 MG TABLET (FP) PO ONE (14:50)
== END 2024-02-10 14:50 | disposition home or self-care (01) ==
LOC: JER 11:37
DX: M79.89 Other specified soft tissue disorders (principal)
CPT/HCPCS: 73130-TC-RT-FY; 99283-25